=== PATIENT | male | born 1975 | race Caucasian/White ===

== ENCOUNTER 2017-08-30 14:32 | Observation (INO) | payer OTHER ==
[2017-08-30] MEDS ORDERED: Labetalol 25mg/5ml Syringe ONE (14:52)
[2017-08-30] MEDS ORDERED: Labetalol 25mg/5ml Syringe IV STA (14:53)
--- NOTE | 2017-08-30 14:58 | C.PDOC ---
History Of Present Illness Hunter Davis is a 41 y/o male with a past medical history of hypertension, on medication. 6 weeks ago, patient stopped taking his medications. States he began having problems with his and started drinking several beers per day. Last week he began feeling unwell, and noticed some redness to his right eye. Today patient went to the clinic where his blood pressure was 200/150, and was sent to the ED. Patient now complaining he feels some fullness in throat. Denies any chest pain, headache, or visual disturbance. He has been noticing shortness of breath on exertion. On arrival to the ED, HR is in the 120s and blood pressure is 218/144. PMD: The clinic Time Seen by Provider: 08/30/17 14:46 Chief Complaint (Nursing): High Blood Pressure History Per: Patient History/Exam Limitations: no limitations Onset/Duration Of Symptoms: Worse Since (last week) Current Symptoms Are (Timing): Still Present Associated Symptoms: Dyspnea (on exertion) Quality Of Symptoms: Rapid Heart Rate Exacerbating Factor(s): Pos: Recently Missed Doses Of Medication Past Medical History Reviewed: Historical Data, Nursing Documentation, Vital Signs Vital Signs: Last Vital Signs Temp 98.0 F 08/30/17 14:34 Pulse 83 08/30/17 15:07 Resp 24 08/30/17 15:07 BP 181/141 H 08/30/17 15:07 Pulse Ox 95 08/30/17 15:07 - Medical History PMH: HTN Denies: Chronic Kidney Disease Surgical History: No Surg Hx Family History: States: Unknown Family Hx - Social History Hx Tobacco Use: Yes Hx Alcohol Use: Yes (last drink 2 weeks) Hx Substance Use: No - Immunization History Hx Tetanus Toxoid Vaccination: No Hx Influenza Vaccination: No Hx Pneumococcal Vaccination: No Review Of Systems Except As Marked, All Systems Reviewed And Found Negative. Eyes: Positive for: Redness (to right eye). Negative for: Vision Change Cardiovascular: Negative for: Chest Pain Respiratory: Positive for: SOB with Excertion Gastrointestinal: Negative for: Nausea, Vomiting, Abdominal Pain Neurological: Negative for: Headache, Dizziness Physical Exam - Physical Exam Appears: No Acute Distress Skin: Normal Color, Warm, Dry Head: Atraumatic, Normacephalic Eye(s): bilateral: PERRL, EOMI, right: Other (subconjunctival hemorrhage) Nose: Normal Neck: Normal ROM, Supple Chest: Symmetrical Cardiovascular: Rhythm Regular (but tachy; HR in 120s) Respiratory: No Accessory Muscle Use, No Rhonchi, No Wheezing, Other (Lungs clear to auscultation bilaterally) Gastrointestinal/Abdominal: Soft, No Tenderness, No Distention Extremity: Bilateral: Atraumatic, No Pedal Edema, Normal Color And Temperature Pulses: Left Dorsalis Pedis: Normal, Right Dorsalis Pedis: Normal Neurological/Psych: Oriented x3, Normal Speech, No Other (focal deficits) ED Course And Treatment - Laboratory Results Result Diagrams: 08/30/17 15:16 08/30/17 15:16 Lab Interpretation: Abnormal (BNP 1500) ECG: Interpreted By Id ECG Rhythm: Sinus Rhythm (with biatrial enlargement), Nonspecific Changes (T wave changes) O2 Sat by Pulse Oximetry: 97 (RA) Pulse Ox Interpretation: Normal - CT Scan/US CT Head Other Rad Studies (CT/US): Read By Radiologist, Radiology Report Reviewed CT/US Interpretation: Accession No. : [id number]. Patient Name / ID : ALEE ALBERTO / [id number]. Exam Date : 08/30/2017 15:11:28 ( Approved ) . Study Comment : Sex / Age : M / 41Y. Creator : Rachna Watson. Dictator : Lynn Dasilva MD. Medical Supervisor : Pipe Stripper : Lynn Dasilva MD. Approver2 : Report Date : 08/30/2017 15:21:05. My Comment : . PROCEDURE: CT HEAD WITHOUT CONTRAST. HISTORY: R/O Bleed. COMPARISON: None available. TECHNIQUE: Axial computed tomography images were obtained through the head/ brain without intravenous contrast. Radiation dose: Total exam DLP = 1569.23 mGy-cm. This CT exam was performed using one or more of the following dose reduction techniques: Automated exposure control, adjustment of the mA and/or kV according to patient size, and/or use of iterative reconstruction technique. FINDINGS: HEMORRHAGE: No intracranial hemorrhage. BRAIN: [place]-white matter differentiation is preserved. There is no mass, mass effect or abnormal extra-axial fluid collection. There is no territorial infarction. VENTRICLES: The ventricles are normal in size, shape and configuration. CALVARIUM: There is no calvarial fracture or extracranial soft tissue swelling. PARANASAL SINUSES: Predominantly clear. MASTOID AIR CELLS: Predominantly clear. OTHER FINDINGS: None. IMPRESSION: No acute intracranial abnormality. Reevaluation Time: 15:44 Reassessment Condition: Improved (BP and heart rate decreased) - Physician Consult Information Time Consulting Physician Contacted: 16:25 Physician Contacted: Calvin Saravia Outcome Of Conversation: Patient to be admitted for observation and control of BP on oral medication. Medical Decision Making Medical Decision Making: Impression: Hypertension, uncontrolled Time: 14:52 Initial Plan: --EKG --Pro-BNP --Magnesium --Troponin I --CMP --CBC --Urinalysis --Labetalol 20 mg IV --CT Head W/O contrast Disposition - Disposition Disposition: HOSPITALIZED Disposition Time: 16:27 Condition: IMPROVED - Clinical Impression Clinical Impression: Hypertensive urgency - Scribe Statement The provider has reviewed the documentation as recorded by the Scribe (Perla Eden) Provider Attestation: All medical record entries made by the Scribe were at my direction and personally dictated by me. I have reviewed the chart and agree that the record accurately reflects my personal performance of the history, physical exam, medical decision making, and the department course for this patient. I have also personally directed, reviewed, and agree with the discharge instructions and disposition.
[2017-08-30 15:20] LABS: BASO # 0.1 K/uL (0.0-0.2); EOS # 0.1 K/uL (0.0-0.7); EOS % 0.9 % (0.0-4.0); HEMOGLOBIN 15.1 g/dL (12.0-18.0); LYMPH % 26.4 % (20.0-40.0); MEAN CORPUSCULAR HEMOGLOBIN 27.9 pg (27.0-31.0); MEAN CORPUSCULAR HGB CONC 33.3 g/dL (33.0-37.0); MEAN PLATELET VOLUME 9.2 fL (7.2-11.7); MONO # 0.6 K/uL (0.0-0.8); MONO % 8.3 % (0.0-10.0); NEUT # 4.7 K/uL (1.8-7.0); NEUT % 63.4 % (50.0-75.0); RBC 5.39 Mil/uL (4.40-5.90); RED CELL DISTRIBUTION WIDTH 16.1 % (11.5-14.5); WHITE BLOOD COUNT 7.5 K/uL (4.8-10.8)
--- NOTE | 2017-08-30 15:36 | CT ---
PROCEDURE: CT HEAD WITHOUT CONTRAST. HISTORY: R/O Bleed COMPARISON: None available. TECHNIQUE: Axial computed tomography images were obtained through the head/brain without intravenous contrast. Radiation dose: Total exam DLP = 1569.23 mGy-cm. This CT exam was performed using one or more of the following dose reduction techniques: Automated exposure control, adjustment of the mA and/or kV according to patient size, and/or use of iterative reconstruction technique. FINDINGS: HEMORRHAGE: No intracranial hemorrhage. BRAIN: Beltran-white matter differentiation is preserved. There is no mass, mass effect or abnormal extra-axial fluid collection. There is no territorial infarction. VENTRICLES: The ventricles are normal in size, shape and configuration. CALVARIUM: There is no calvarial fracture or extracranial soft tissue swelling. PARANASAL SINUSES: Predominantly clear. MASTOID AIR CELLS: Predominantly clear. OTHER FINDINGS: None. IMPRESSION: No acute intracranial abnormality.
[2017-08-30 15:40] LABS: ALB/GLOB RATIO 1.1 (1.0-2.1); ALBUMIN 4.3 g/dL (3.5-5.0); ALT/SGPT 77 U/L (21-72); AST/SGOT 46 U/L (17-59); BLOOD UREA NITROGEN 13 mg/dL (9-20); CALCIUM 9.4 mg/dl (8.6-10.4); GFR AFRICAN-AMERICAN > 60; GFR NON-AFRICAN AMERICAN > 60
[2017-08-30 15:51] LABS: B-TYPE NATRIURETIC PEPTIDE 1500 pg/mL (0-450)
--- NOTE | 2017-08-30 18:01 | CP.PCM.HP ---
<Mehnaz Larios - Last Filed: 08/30/17 18:09> History of Present Illness - History of Present Illness History of Present Illness: CC: Hypertensive urgency 41 year old male with past medical history of hypertension, type 2 diabetes, and CHF was sent from [facility] clinic for uncontrolled hypertension. Patient was found to have BP of 218/144. Patient denies having headache, chest pain, shortness of breath, or urinary complaints. Patient reports he ran out of his medications about 6 weeks ago and never got a chance to refill them because he has been busy. Patient woke up with right eye redness 2 weeks ago and denies any vision changes or irritations. His son became worried and forced the patient to go to [facility] clinic to get evaluated. Patient also reports to have been gaining weight for not watching what he eats. Patient further denies having fever, chills, coughs, lower extremity swelling. PMD: [facility] PMHx: HTN, DM2, CHF PSHx: none Allergy: NKDA Family Hx: Father with DM2, HTN, CAD Social Hx: social alcohol consumption (6-7 beers weekly), former smoker quit 2 years ago, denies other drug use Home meds: Metformin, lasix, Amlodipine, Zestril, Simvastatin, Metoprolol Present on Admission - Present on Admission Any Indicators Present on Admission: No Review of Systems - Constitutional Constitutional: As Per HPI, Weight Gain. absent: Chills, Fever - EENT Eyes: As Per HPI. absent: Blind Spots, Blurred Vision, Change in Vision, Irritation, Pain, Spots in Vision Ears: As Per HPI. absent: Disequilibrium, Dizziness Nose/Mouth/Throat: As Per HPI. absent: Nasal Trauma, Nose Pain - Cardiovascular Cardiovascular: As Per HPI. absent: Chest Pain, Dyspnea, Leg Edema, Palpitations, Syncope - Respiratory Respiratory: As Per HPI. absent: Cough, Dyspnea - Gastrointestinal Gastrointestinal: As Per HPI. absent: Abdominal Pain, Nausea, Vomiting - Genitourinary Genitourinary: As Per HPI. absent: Dysuria, Urinary Frequency, Urinary Hesitance - Musculoskeletal Musculoskeletal: As Per HPI. absent: Deformity, Joint Swelling - Integumentary Integumentary: As Per HPI. absent: Alopecia, Skin Ulcer, Swelling - Neurological Neurological: As Per HPI. absent: Confusion, Dizziness, Numbness, Syncope, Weakness - Psychiatric Psychiatric: As Per HPI. absent: Change in Appetite, Confusion, Panic Attacks - Endocrine Endocrine: As Per HPI. absent: Polydipsia, Polyphagia, Polyuria - Hematologic/Lymphatic Hematologic: As Per HPI Past Patient History - Infectious Disease Hx of Infectious Diseases: None - Past Medical History & Family History Past Medical History?: Yes - Past Social History Smoking Status: Former Smoker - CARDIAC Hx Hypertension: Yes - PULMONARY Hx Respiratory Disorders: No - NEUROLOGICAL Hx Neurological Disorder: No - HEENT Hx HEENT Problems: No - RENAL Hx Chronic Kidney Disease: No - ENDOCRINE/METABOLIC Hx Diabetes Mellitus Type 2: Yes - HEMATOLOGICAL/ONCOLOGICAL Hx Blood Disorders: No - INTEGUMENTARY Hx Dermatological Problems: No - MUSCULOSKELETAL/RHEUMATOLOGICAL Hx Musculoskeletal Disorders: No Hx Falls: No - GASTROINTESTINAL Hx Gastrointestinal Disorders: No - GENITOURINARY/GYNECOLOGICAL Hx Genitourinary Disorders: No - PSYCHIATRIC Hx Substance Use: No - SURGICAL HISTORY Hx Surgeries: No - ANESTHESIA Hx Anesthesia: No Meds Allergies/Adverse Reactions: Allergies Allergy/AdvReac Type Severity Reaction Status Date / Time No Known Allergies Allergy Verified 01/01/16 16:35 Physical Exam - Constitutional Appears: No Acute Distress Additional comments: obese - Head Exam Head Exam: ATRAUMATIC, NORMAL INSPECTION - Eye Exam Eye Exam: EOMI, PERRL. absent: Normal appearance (right conjunctival injection) - ENT Exam ENT Exam: Mucous Membranes Moist - Neck Exam Additional comments: obese neck - Respiratory Exam Respiratory Exam: Clear to Auscultation Bilateral, NORMAL BREATHING PATTERN. absent: Respiratory Distress - Cardiovascular Exam Cardiovascular Exam: Tachycardia, REGULAR RHYTHM, +S1 - GI/Abdominal Exam GI & Abdominal Exam: Normal Bowel Sounds, Soft. absent: Tenderness - Extremities Exam Extremities exam: Positive for: normal inspection. Negative for: pedal edema, tenderness - Neurological Exam Neurological exam: Alert, Oriented x3 - Psychiatric Exam Psychiatric exam: Normal Affect, Normal Mood - Skin Skin Exam: Normal Color, Warm Results - Vital Signs Recent Vital Signs: Last Vital Signs Temp 98.0 F 08/30/17 14:34 Pulse 72 08/30/17 16:58 Resp 18 08/30/17 16:58 BP 147/98 H 08/30/17 16:58 Pulse Ox 95 08/30/17 16:58 - Labs Result Diagrams: 08/30/17 15:16 08/30/17 15:16 Labs: Laboratory Results - last 24 hr 08/30/17 08/30/17 15:16 15:16 WBC 7.5 RBC 5.39 Hgb 15.1 Hct 45.3 MCV 84.0 D MCH 27.9 MCHC 33.3 RDW 16.1 H Plt Count 289 MPV 9.2 Neut % (Auto) 63.4 Lymph % (Auto) 26.4 [place] % (Auto) 8.3 Eos % (Auto) 0.9 Baso % (Auto) 1.0 Neut # (Auto) 4.7 Lymph # (Auto) 2.0 [place] # (Auto) 0.6 Eos # (Auto) 0.1 Baso # (Auto) 0.1 Sodium 141 Potassium 3.8 Chloride 102 Carbon Dioxide 29 Anion Gap 15 BUN 13 Creatinine 1.0 Est GFR ( Amer) > 60 Est GFR (Non-Af Amer) > 60 Random Glucose 135 H Calcium 9.4 Magnesium 1.9 Total Bilirubin 1.1 AST 46 ALT 77 H Alkaline Phosphatase 81 Troponin I 0.0700 NT-Pro-B Natriuret Pep 1500 H Total Protein 8.0 Albumin 4.3 Globulin 3.8 Albumin/Globulin Ratio 1.1 Assessment & Plan - Assessment and Plan (Free Text) Assessment: Hypertensive urgency -Tele obs -Head CT showed no intracranial abnormality -EKG NSR without ST elevations -Hydralazine 10mg IV Q6hr prn -continue amlodipine 10mg PO -Continue lisinopril 40mg po -Follow up echocardiogram -Follow UDS CHF -BNP 1500 -CXR pending -Continue Lasix 40mg po -Follow up echocardiogram -Last echo was in 12/2015 showed EF 25-30% Diabetes -Continue metformin 500mg BID -ISS -FS ACHS Sleep Apnea -Patient will need an outpatient sleep study evaluation Prophylactic measures -Pepcid -SCD <Calvin Saravia H - Last Filed: 08/30/17 18:37> Results - Vital Signs Recent Vital Signs: Last Vital Signs Temp 98.0 F 08/30/17 14:34 Pulse 72 08/30/17 16:58 Resp 18 08/30/17 16:58 BP 168/133 H 08/30/17 18:19 Pulse Ox 95 08/30/17 16:58 - Labs Result Diagrams: 08/30/17 15:16 08/30/17 15:16 Labs: Laboratory Results - last 24 hr 08/30/17 08/30/17 15:16 15:16 WBC 7.5 RBC 5.39 Hgb 15.1 Hct 45.3 MCV 84.0 D MCH 27.9 MCHC 33.3 RDW 16.1 H Plt Count 289 MPV 9.2 Neut % (Auto) 63.4 Lymph % (Auto) 26.4 [place] % (Auto) 8.3 Eos % (Auto) 0.9 Baso % (Auto) 1.0 Neut # (Auto) 4.7 Lymph # (Auto) 2.0 [place] # (Auto) 0.6 Eos # (Auto) 0.1 Baso # (Auto) 0.1 Sodium 141 Potassium 3.8 Chloride 102 Carbon Dioxide 29 Anion Gap 15 BUN 13 Creatinine 1.0 Est GFR ( Amer) > 60 Est GFR (Non-Af Amer) > 60 Random Glucose 135 H Calcium 9.4 Magnesium 1.9 Total Bilirubin 1.1 AST 46 ALT 77 H Alkaline Phosphatase 81 Troponin I 0.0700 NT-Pro-B Natriuret Pep 1500 H Total Protein 8.0 Albumin 4.3 Globulin 3.8 Albumin/Globulin Ratio 1.1 Attending/Attestation - Attestation I have personally seen and examined this patient.: Yes I have fully participated in the care of the patient.: Yes I have reviewed all pertinent clinical information: Yes Notes (Text): 08/30/17 18:33 Medical attending: Patient was seen and examined by me in the ER with director global medical affairs. Reviewed the above note and agree The patient was sent up from the clinic to the ER after not being on BP medications for a long time and then found to have systolic of > 200. In the ER he received labeatolol IV. He explains he nevere refilled his medications he was supposed to take. Reguardless will place back on norvasc 10, Lisinopril, and Lasix. There will also be an order for PRN IV hydralazine if systolic > 160. When we saw him he was calm and not in any acute distress. He does appear to very likley have severe obstructive sleep apnea - he is morbid obesity as well as a very heavy set neck. He should have a sleep study done as an outpatient after he gets released. I explained to the patient that if BP is ok tommorow that he would be going ariel thank you Calvin Saravia
[2017-08-30 18:35] VITALS: RESP 20
--- NOTE | 2017-08-30 18:52 | RAD ---
HISTORY: uncontrolled hypertension COMPARISON: No prior. FINDINGS: LUNGS: No active pulmonary disease. PLEURA: No significant pleural effusion identified, no pneumothorax apparent. CARDIOVASCULAR: Cardiomegaly. No evidence of acute, significant cardiovascular disease. OSSEOUS STRUCTURES: No significant abnormalities. VISUALIZED UPPER ABDOMEN: Normal. OTHER FINDINGS: None. IMPRESSION: No active disease.
[2017-08-30] MEDS: (Novolin R) Insulin Human Regular 100 units/ml vial SC SCH (21:33)
[2017-08-30 22:07] LABS: URINE BILIRUBIN NEGATIVE (NEGATIVE); URINE BLOOD NEGATIVE (NEGATIVE); URINE CLARITY Hazy (Clear); URINE GLUCOSE (UA) NORMAL (Normal); URINE LEUKOCYTE ESTERASE NEG Leu/uL (Negative); URINE PROTEIN 3+ mg/dL (NEGATIVE)
[2017-08-30 22:10] LABS: URINE COLOR YELLOW (YELLOW)
[2017-08-30 22:23] LABS: BARBITURATES, UR NEGATIVE (NEGATIVE); BENZODIAZEPINES, UR NEGATIVE (NEGATIVE); OPIATES, UR NEGATIVE (NEGATIVE); PHENCYCLIDINE, UR NEGATIVE (NEGATIVE)
[2017-08-31 00:08] VITALS: O2SAT 99
[2017-08-31 07:42] LABS: BASO # 0.1 K/uL (0.0-0.2); BASO % 1.3 % (0.0-2.0); EOS # 0.1 K/uL (0.0-0.7); EOS % 2.1 % (0.0-4.0); HEMOGLOBIN 14.7 g/dL (12.0-18.0); LYMPH # 1.2 K/uL (1.0-4.3); LYMPH % 23.9 % (20.0-40.0); MEAN CELL VOLUME 84.5 fL (80.0-94.0); MEAN CORPUSCULAR HEMOGLOBIN 27.9 pg (27.0-31.0); MEAN PLATELET VOLUME 9.1 fL (7.2-11.7); MONO # 0.5 K/uL (0.0-0.8); MONO % 9.4 % (0.0-10.0); NEUT # 3.2 K/uL (1.8-7.0); NEUT % 63.3 % (50.0-75.0); NRBC % 0.1 % (0.0-2.0); RBC 5.26 Mil/uL (4.40-5.90); RED CELL DISTRIBUTION WIDTH 16.3 % (11.5-14.5)
[2017-08-31] MEDS: (Novolin R) Insulin Human Regular 100 units/ml vial SC SCH ×2 (07:55→11:38)
[2017-08-31 08:01] VITALS: PULSE 104
[2017-08-31 08:04] VITALS: BP 142/91; TEMP 98.1
[2017-08-31 08:04] LABS: ALB/GLOB RATIO 1.1 (1.0-2.1); ALT/SGPT 62 U/L (21-72); AST/SGOT 45 U/L (17-59); BLOOD UREA NITROGEN 11 mg/dL (9-20); CALCIUM 8.8 mg/dl (8.6-10.4); GFR AFRICAN-AMERICAN > 60; GFR NON-AFRICAN AMERICAN > 60
[2017-08-31] MEDS ORDERED: Perflutren Lipid Microsphere 1.5 ML SUS IV ONE (09:15)
[2017-08-31] MEDS ORDERED: Pneumococcal 23-Valent Vaccine IM ONE (14:00)
--- NOTE | 2017-08-31 15:27 | CP.PCM.DIS ---
<Sugar Tapia - Last Filed: 08/31/17 15:42> Provider - Provider Date of Admission: 08/30/17 16:59 Attending physician: Calvin Saravia DO Time Spent in preparation of Discharge (in minutes): 35 Hospital Course - Lab Results Lab Results: Most Recent Lab Values WBC 5.0 K/uL (4.8-10.8) 08/31/17 07:31 RBC 5.26 Mil/uL (4.40-5.90) 08/31/17 07:31 Hgb 14.7 g/dL (12.0-18.0) 08/31/17 07:31 Hct 44.4 % (35.0-51.0) 08/31/17 07:31 MCV 84.5 fL (80.0-94.0) 08/31/17 07:31 MCH 27.9 pg (27.0-31.0) 08/31/17 07: MCHC 33.0 g/dL (33.0-37.0) 08/31/17 07:31 RDW 16.3 % (11.5-14.5) H 08/31/17 07:31 Plt Count 275 K/uL (130-400) 08/31/17 07:31 MPV 9.1 fL (7.2-11.7) 08/31/17 07:31 Neut % (Auto) 63.3 % (50.0-75.0) 08/31/17 07:31 Lymph % (Auto) 23.9 % (20.0-40.0) 08/31/17 07:31 [place] % (Auto) 9.4 % (0.0-10.0) 08/31/17 07:31 Eos % (Auto) 2.1 % (0.0-4.0) 08/31/17 07:31 Baso % (Auto) 1.3 % (0.0-2.0) 08/31/17 07:31 Neut # (Auto) 3.2 K/uL (1.8-7.0) 08/31/17 07:31 Lymph # (Auto) 1.2 K/uL (1.0-4.3) 08/31/17 07:31 [place] # (Auto) 0.5 K/uL (0.0-0.8) 03/20/18 07:31 Eos # (Auto) 0.1 K/uL (0.0-0.7) 08/31/17 07:31 Baso # (Auto) 0.1 K/uL (0.0-0.2) 08/31/17 07:31 Sodium 140 mmol/L (132-148) 08/31/17 07:31 Potassium 3.6 mmol/L (3.6-5.2) 08/31/17 07:31 Chloride 101 mmol/L (98-107) 08/31/17 07:31 Carbon Dioxide 26 mmol/L (22-30) 08/31/17 07:31 Anion Gap 16 (10-20) 08/31/17 07:31 BUN 11 mg/dL (9-20) 08/31/17 07:31 Creatinine 0.9 mg/dL (0.8-1.5) 08/31/17 07:31 Est GFR ( Amer) > 60 08/31/17 07:31 Est GFR (Non-Af Amer) > 60 08/31/17 07:31 POC Glucose (mg/dL) 152 mg/dL (65-110) H 08/31/17 11:10 Random Glucose 124 mg/dL (75-110) H 08/31/17 07:31 Calcium 8.8 mg/dl (8.6-10.4) 08/31/17 07:31 Magnesium 1.9 mg/dL (1.6-2.3) 08/30/17 15:16 Total Bilirubin 1.0 mg/dL (0.2-1.3) 08/31/17 07:31 AST 45 U/L (17-59) 08/31/17 07:31 ALT 62 U/L (21-72) 08/31/17 07:31 Alkaline Phosphatase 69 U/L (38-126) 08/31/17 07:31 Troponin I 0.0700 ng/mL (0.00-0.120) 08/30/17 15:16 NT-Pro-B Natriuret Pep 1500 pg/mL (0-450) H 08/30/17 15:16 Total Protein 7.7 g/dL (6.3-8.3) 08/31/17 07:31 Albumin 4.0 g/dL (3.5-5.0) 08/31/17 07:31 Globulin 3.7 gm/dL (2.2-3.9) 08/31/17 07:31 Albumin/Globulin Ratio 1.1 (1.0-2.1) 08/31/17 07:31 Urine Color Yellow (YELLOW) 08/30/17 22:00 Urine Clarity Hazy (Clear) 08/30/17 22:00 Urine pH 7.0 (5.0-8.0) 08/30/17 22:00 Ur Specific [place] 1.019 (1.003-1.030) 08/30/17 22:00 Urine Protein 3+ mg/dL (NEGATIVE) H 08/30/17 22:00 Urine Glucose (UA) Normal mg/dL (Normal) 08/30/17 22:00 Urine Ketones Negative mg/dL (NEGATIVE) 08/30/17 22:00 Urine Blood Negative (NEGATIVE) 08/30/17 22:00 Urine Nitrate Negative (NEGATIVE) 08/30/17 22:00 Urine Bilirubin Negative (NEGATIVE) 08/30/17 22:00 Urine Urobilinogen 2.0 mg/dL (0.2-1.0) 08/30/17 22:00 Ur Leukocyte Esterase Neg Branden/uL (Negative) 08/30/17 22:00 Urine WBC (Auto) 1 /hpf (0-5) 08/30/17 22:00 Urine RBC (Auto) < 1 /hpf (0-3) 08/30/17 22:00 Urine Opiates Screen Negative (NEGATIVE) 08/30/17 21:56 Urine Methadone Screen Negative (NEGATIVE) 08/30/17 21:56 Ur Barbiturates Screen Negative (NEGATIVE) 08/30/17 21:56 Ur Phencyclidine Scrn Negative (NEGATIVE) 08/30/17 21:56 Ur Amphetamines Screen Negative (NEGATIVE) 08/30/17 21:56 U Benzodiazepines Scrn Negative (NEGATIVE) 08/30/17 21:56 U Oth Cocaine Metabols Negative (NEGATIVE) 08/30/17 21:56 U Cannabinoids Screen Negative (NEGATIVE) 08/30/17 21:56 - Hospital Course Hospital Course: HPI 41 year old male with past medical history of hypertension, type 2 diabetes, and CHF was sent from [facility] clinic for uncontrolled hypertension. Patient was found to have BP of 218/144. Patient denies having headache, chest pain, shortness of breath, or urinary complaints. Patient reports he ran out of his medications about 6 weeks ago and never got a chance to refill them because he has been busy. Patient woke up with right eye redness 2 weeks ago and denies any vision changes or irritations. His son became worried and forced the patient to go to [facility] clinic to get evaluated. Patient also reports to have been gaining weight for not watching what he eats. Patient further denies having fever, chills, coughs, lower extremity swelling. Hospital Course Patient was given Hydralazine 10mg at 18:20, Lasix 40mg QD 18:19, Norvasc 10mg QD 21:33. Hydralazine 10mg at 04:26, Lasix 40mg QD 10:18, Norvasc 10mg QD 10: 19. Blood pressure better controlled. Patient sent home on prescriptions for all home medications. Patient was instructed to follow up with primary care physician in one to two weeks. Norvasc 10mg POQD, Lasix 20mg QD, Lisinopril 40mg PO QD, Toprol XL 12.5mg PO BID, Crestor 2.5mg PO QHS. - Date & Time of H&P Date of H&P: 08/31/17 Time of H&P: 15:23 Discharge Exam - Head Exam Head Exam: ATRAUMATIC, NORMAL INSPECTION Discharge Plan - Discharge Medications Prescriptions: amLODIPine [Norvasc] 10 mg PO DAILY #30 tab Furosemide [Lasix] 20 mg PO DAILY #30 tablet Lisinopril [Zestril] 40 mg PO DAILY #30 tablet metFORMIN [glucOPHAGE] 500 mg PO BIDCC #60 tab Metoprolol Succinate [Toprol XL] 12.5 mg PO BID 30 Days #30 tab Rosuvastatin Calcium 2.5 [Crestor] 2.5 mg PO HS #30 tab - Follow Up Plan Condition: IMPROVED Disposition: HOME/ ROUTINE Instructions: Heart Healthy Diet, Heart Failure, Adult (DC), High Blood Pressure (DC), Amlodipine, Furosemide, Lisinopril, Metoprolol, Hypertension (DC) Additional Instructions: Patient to follow up in one week in clinic Patient was sent home on medication for blood pressure control. patient to make scheduled appointments for health education aide referral, exercise counseling, and management of blood pressure Referrals: [facility] at [facility] [Outside] <Calvin Saravia - Last Filed: 08/31/17 16:09> Provider - Provider Date of Admission: 08/30/17 16:59 Attending physician: Calvin Saravia DO Hospital Course - Lab Results Lab Results: Most Recent Lab Values WBC 5.0 K/uL (4.8-10.8) 08/31/17 07:31 RBC 5.26 Mil/uL (4.40-5.90) 08/31/17 07:31 Hgb 14.7 g/dL (12.0-18.0) 08/31/17 07:31 Hct 44.4 % (35.0-51.0) 08/31/17 07:31 MCV 84.5 fL (80.0-94.0) 08/31/17 07:31 MCH 27.9 pg (27.0-31.0) 08/31/17 07:31 MCHC 33.0 g/dL (33.0-37.0) 08/31/17 07:31 RDW 16.3 % (11.5-14.5) H 08/31/17 07:31 Plt Count 275 K/uL (130-400) 08/31/17 07:31 MPV 9.1 fL (7.2-11.7) 08/31/17 07:31 Neut % (Auto) 63.3 % (50.0-75.0) 08/31/17 07:31 Lymph % (Auto) 23.9 % (20.0-40.0) 08/31/17 07:31 Liberty % (Auto) 9.4 % (0.0-10.0) 08/31/17 07:31 Eos % (Auto) 2.1 % (0.0-4.0) 08/31/17 07:31 Baso % (Auto) 1.3 % (0.0-2.0) 08/31/17 07:31 Neut # (Auto) 3.2 K/uL (1.8-7.0) 08/31/17 07:31 Lymph # (Auto) 1.2 K/uL (1.0-4.3) 08/31/17 07:31 Liberty # (Auto) 0.5 K/uL (0.0-0.8) 08/31/17 07:31 Eos # (Auto) 0.1 K/uL (0.0-0.7) 08/31/17 07:31 Baso # (Auto) 0.1 K/uL (0.0-0.2) 08/31/17 07:31 Sodium 140 mmol/L (132-148) 08/31/17 07:31 Potassium 3.6 mmol/L (3.6-5.2) 08/31/17 07:31 Chloride 101 mmol/L (98-107) 08/31/17 07:31 Carbon Dioxide 26 mmol/L (22-30) 08/31/17 07:31 Anion Gap 16 (10-20) 08/31/17 07:31 BUN 11 mg/dL (9-20) 08/31/17 07:31 Creatinine 0.9 mg/dL (0.8-1.5) 08/31/17 07:31 Est GFR ( Amer) > 60 08/31/17 07:31 Est GFR (Non-Af Amer) > 60 08/31/17 07:31 POC Glucose (mg/dL) 152 mg/dL (65-110) H 08/31/17 11:10 Random Glucose 124 mg/dL (75-110) H 08/31/17 07:31 Calcium 8.8 mg/dl (8.6-10.4) 08/31/17 07:31 Magnesium 1.9 mg/dL (1.6-2.3) 08/30/17 15:16 Total Bilirubin 1.0 mg/dL (0.2-1.3) 08/31/17 07:31 AST 45 U/L (17-59) 08/31/17 07:31 ALT 62 U/L (21-72) 08/31/17 07:31 Alkaline Phosphatase 69 U/L (38-126) 08/31/17 07:31 Troponin I 0.0700 ng/mL (0.00-0.120) 08/30/17 15:16 NT-Pro-B Natriuret Pep 1500 pg/mL (0-450) H 08/30/17 15:16 Total Protein 7.7 g/dL (6.3-8.3) 08/31/17 07:31 Albumin 4.0 g/dL (3.5-5.0) 08/31/17 07:31 Globulin 3.7 gm/dL (2.2-3.9) 08/31/17 07:31 Albumin/Globulin Ratio 1.1 (1.0-2.1) 08/31/17 07:31 Urine Color Yellow (YELLOW) 08/30/17 22:00 Urine Clarity Hazy (Clear) 08/30/17 22:00 Urine pH 7.0 (5.0-8.0) 08/30/17 22:00 Ur Specific [place] 1.019 (1.003-1.030) 08/30/17 22:00 Urine Protein 3+ mg/dL (NEGATIVE) H 08/30/17 22:00 Urine Glucose (UA) Normal mg/dL (Normal) 08/30/17 22:00 Urine Ketones Negative mg/dL (NEGATIVE) 08/30/17 22:00 Urine Blood Negative (NEGATIVE) 08/30/17 22:00 Urine Nitrate Negative (NEGATIVE) 08/30/17 22:00 Urine Bilirubin Negative (NEGATIVE) 08/30/17 22:00 Urine Urobilinogen 2.0 mg/dL (0.2-1.0) 08/30/17 22:00 Ur Leukocyte Esterase Neg Branden/uL (Negative) 08/30/17 22:00 Urine WBC (Auto) 1 /hpf (0-5) 08/30/17 22:00 Urine RBC (Auto) < 1 /hpf (0-3) 08/30/17 22:00 Urine Opiates Screen Negative (NEGATIVE) 08/30/17 21:56 Urine Methadone Screen Negative (NEGATIVE) 08/30/17 21:56 Ur Barbiturates Screen Negative (NEGATIVE) 08/30/17 21:56 Ur Phencyclidine Scrn Negative (NEGATIVE) 08/30/17 21:56 Ur Amphetamines Screen Negative (NEGATIVE) 08/30/17 21:56 U Benzodiazepines Scrn Negative (NEGATIVE) 08/30/17 21:56 U Oth Cocaine Metabols Negative (NEGATIVE) 08/30/17 21:56 U Cannabinoids Screen Negative (NEGATIVE) 08/30/17 21:56 Attending/Attestation - Attestation I have personally seen and examined this patient.: Yes I have fully participated in the care of the patient.: Yes I have reviewed all pertinent clinical information, including history, physical exam and plan: Yes Notes (Text): 08/31/17 16:04 Medical attending: Patient was seen and examined by me. Agree with the above note the resident The patient 's BP was better than day before when he came in. On exam he was able to walk in the hallway without difficulty - he did not have shortness of breath or palpitations when he walked. He denied having headaches or dizziness Will continue with PO medications as mentioned above in the resident note He says he is currently going through a difficult time with his family at the moment. He knows that he has to loose weight I explained to him that he also has JUAN CARLOS as well and this can contribute to many problems in the future We also emphasized to him the importance of taking his medications and advised him that many of these medications are not expensive - even if he does not have insurance thank you Calvin Saravia
--- NOTE | 2017-08-31 19:10 | CARD ---
APPROVED REPORT EKG Measurement Heart [id number] VT [id number] <Conclusion> Normal sinus rhythm Biatrial enlargement Nonspecific T wave abnormality Prolonged QT Abnormal ECG
== END 2017-08-31 14:29 | disposition home or self-care (01) ==
LOC: C.ER 14:32 → C.9E 16:59 → C.6T 17:17
PROVIDERS: ADMIT Hospitalist; ATTEND Hospitalist
DX: I16.0 Hypertensive urgency (principal); I11.0 Hypertensive heart disease with heart failure; I50.9 Heart failure, unspecified; G47.30 Sleep apnea, unspecified; Z87.891 Personal history of nicotine dependence; Z79.84 Long term (current) use of oral hypoglycemic drugs; E11.9 Type 2 diabetes mellitus without complications
CPT/HCPCS: 36415; 70450; 71045; 80053; 80324; 80345; 80346; 80349; 80353; 80358; 80361; 81001; 82948; 83735; 83880; 83992; 84484; 85025; 93005; 93306; 99285; G0378; J0360